=== PATIENT | female | born 1980 | race Caucasian/White ===

== ENCOUNTER 2017-05-25 23:31 | Inpatient (IN) | payer OTHER ==
[~2017-05-25] VITALS: Ht 149.9 cm; Wt 54.4 kg
[2017-05-25] MEDS ORDERED: PRENATAL + DHA1 EAC1 (23:40)
[2017-06-07] MEDS ORDERED: FERROUS SULFAT325 M1 PO (09:55)
[2017-06-07] MEDS ORDERED: FOLIC ACID1 MG PO (09:56)
[2017-06-07] MEDS ORDERED: PYRIDOXINE HCL100 M1 PO (09:57)
== END 2017-06-07 10:11 | DRG 778 ==
LOC: ER 23:31 → OB/GYN 05-26 09:35 → SURH 05-26 09:35 → OB/GYN 05-26 12:32
PROC: 4A1HXCZ Monitoring of Products of Conception, Cardiac Rate, External Approach (ICD-10-PCS; principal; 2017-05-26)
PROC: BY4DZZZ Ultrasonography of Second Trimester, Multiple Gestation (ICD-10-PCS; 2017-05-28)
PROC: BY4DZZZ Ultrasonography of Second Trimester, Multiple Gestation (ICD-10-PCS; 2017-06-04)
PROC: B54NZZZ Ultrasonography of Left Upper Extremity Veins (ICD-10-PCS; 2017-06-04)
PROC: BW40ZZZ Ultrasonography of Abdomen (ICD-10-PCS; 2017-06-04)
DX: O60.02 Preterm labor without delivery, second trimester (principal); O41.02X2 Oligohydramnios, second trimester, fetus 2; O26.872 Cervical shortening, second trimester; O36.4XX1 Maternal care for intrauterine death, fetus 1; O46.8X2 Other antepartum hemorrhage, second trimester; O99.012 Anemia complicating pregnancy, second trimester; D64.89 Other specified anemias; O34.82 Maternal care for other abnormalities of pelvic organs, second trimester; N83.291 Other ovarian cyst, right side; O26.22 Pregnancy care for patient with recurrent pregnancy loss, second trimester; O30.042 Twin pregnancy, dichorionic/diamniotic, second trimester; Z3A.16 16 weeks gestation of pregnancy

== ENCOUNTER 2017-06-18 21:23 | Inpatient (IN) | payer OTHER ==
[~2017-06-18] VITALS: Ht 147.3 cm; Wt 54.0 kg
[~2017-06-18 21:23] MED LIST: FERROUS SULFAT325 M1 PO; FOLIC ACID1 MG PO; PRENATAL + DHA1 EAC1; PYRIDOXINE HCL100 M1 PO
[2017-06-22] MEDS ORDERED: FERROUS SULFAT325 M1 PO (08:41)
[2017-06-22] MEDS ORDERED: PYRIDOXINE HCL100 M1 PO (08:41)
[2017-06-22] MEDS ORDERED: FOLIC ACID1 MG PO (08:41)
[2017-06-22] MEDS ORDERED: FAMOTIDINE20 MG PO (08:41)
== END 2017-06-22 09:17 | disposition home or self-care (01) | DRG 864 ==
LOC: ER 21:23 → OB/GYN 06-19 10:06
PROC: BY4CZZZ Ultrasonography of Second Trimester, Single Fetus (ICD-10-PCS; principal; 2017-06-19)
PROC: 4A1HXCZ Monitoring of Products of Conception, Cardiac Rate, External Approach (ICD-10-PCS; 2017-06-19)
DX: R50.9 Fever, unspecified (principal); O26.892 Other specified pregnancy related conditions, second trimester; O26.22 Pregnancy care for patient with recurrent pregnancy loss, second trimester; O34.82 Maternal care for other abnormalities of pelvic organs, second trimester; N83.291 Other ovarian cyst, right side; O99.012 Anemia complicating pregnancy, second trimester; D64.89 Other specified anemias; O09.812 Supervision of pregnancy resulting from assisted reproductive technology, second trimester; Z3A.18 18 weeks gestation of pregnancy

== ENCOUNTER 2017-06-29 06:18 | Inpatient (IN) | payer OTHER ==
[~2017-06-29] VITALS: Ht 147.3 cm; Wt 54.0 kg
[~2017-06-29 06:18] MED LIST changes: +FAMOTIDINE20 MG PO
[2017-07-01] MEDS ORDERED: KETO10TA2 PO (08:02)
[2017-07-01] MEDS ORDERED: ACETAMINOPHEN-1 EAC2 PO (08:02)
== END 2017-07-01 08:39 | disposition home or self-care (01) | DRG 767 ==
LOC: OB/GYN 06:18 → LDR 06:18 → OB/GYN 15:05
PROVIDERS: Obstetrics & Gynecology
PROC: 10E0XZZ Delivery of Products of Conception, External Approach (ICD-10-PCS; 2017-06-29)
PROC: 4A1HXCZ Monitoring of Products of Conception, Cardiac Rate, External Approach (ICD-10-PCS; 2017-06-29)
PROC: 10D17Z9 Manual Extraction of Products of Conception, Retained, Via Natural or Artificial Opening (ICD-10-PCS; principal; 2017-06-29 12:00)
DX: O72.0 Third-stage hemorrhage (principal); O30.042 Twin pregnancy, dichorionic/diamniotic, second trimester; O31.22X2 Continuing pregnancy after intrauterine death of one fetus or more, second trimester, fetus 2; O26.22 Pregnancy care for patient with recurrent pregnancy loss, second trimester; O99.012 Anemia complicating pregnancy, second trimester; O34.82 Maternal care for other abnormalities of pelvic organs, second trimester; O32.1XX1 Maternal care for breech presentation, fetus 1; N83.291 Other ovarian cyst, right side; O03.6 Delayed or excessive hemorrhage following complete or unspecified spontaneous abortion; Z3A.20 20 weeks gestation of pregnancy; Z37.4 Twins, both stillborn

== ENCOUNTER 2017-07-04 14:39 | Inpatient (IN) | payer OTHER ==
[~2017-07-04] VITALS: Ht 149.9 cm; Wt 53.1 kg
[~2017-07-04 14:39] MED LIST changes: +ACETAMINOPHEN-1 EAC2 PO; +KETO10TA2 PO
[2017-07-19] MEDS ORDERED: LEVAQUIN500 MG PO (12:12)
[2017-07-19] MEDS ORDERED: FLAGYL500MG PO (12:12)
[2017-07-19] MEDS ORDERED: INTESTINEX680 M1 PO (12:13)
== END 2017-07-19 12:24 | DRG 779 ==
LOC: OB/GYN 14:39
PROC: BU4CZZZ Ultrasonography of Uterus and Ovaries (ICD-10-PCS; 2017-07-04)
PROC: BW3GZZZ Magnetic Resonance Imaging (MRI) of Pelvic Region (ICD-10-PCS; 2017-07-05)
PROC: BW3GY0Z Magnetic Resonance Imaging (MRI) of Pelvic Region using Other Contrast, Unenhanced and Enhanced (ICD-10-PCS; 2017-07-05)
PROC: 0W9J30Z Drainage of Pelvic Cavity with Drainage Device, Percutaneous Approach (ICD-10-PCS; principal; 2017-07-06)
PROC: 30233N1 Transfusion of Nonautologous Red Blood Cells into Peripheral Vein, Percutaneous Approach (ICD-10-PCS; 2017-07-07)
PROC: BW21Y0Z Computerized Tomography (CT Scan) of Abdomen and Pelvis using Other Contrast, Unenhanced and Enhanced (ICD-10-PCS; 2017-07-09)
PROC: BW21ZZZ Computerized Tomography (CT Scan) of Abdomen and Pelvis (ICD-10-PCS; 2017-07-09)
PROC: 0W9J30Z Drainage of Pelvic Cavity with Drainage Device, Percutaneous Approach (ICD-10-PCS; 2017-07-11)
PROC: BT43ZZZ Ultrasonography of Bilateral Kidneys (ICD-10-PCS; 2017-07-15)
PROC: CW1NLZZ Planar Nuclear Medicine Imaging of Whole Body using Gallium 67 (Ga-67) (ICD-10-PCS; 2017-07-16)
DX: O03.5 Genital tract and pelvic infection following complete or unspecified spontaneous abortion (principal); O03.8 Other and unspecified complications following complete or unspecified spontaneous abortion; O03.6 Delayed or excessive hemorrhage following complete or unspecified spontaneous abortion; N83.291 Other ovarian cyst, right side; B96.20 Unspecified Escherichia coli [E. coli] as the cause of diseases classified elsewhere; N96 Recurrent pregnancy loss; D50.0 Iron deficiency anemia secondary to blood loss (chronic); O03.83 Metabolic disorder following complete or unspecified spontaneous abortion; E87.6 Hypokalemia
CPT/HCPCS: 72197